=== PATIENT | female | born 1955 ===

== ENCOUNTER 2019-10-26 15:13 | Emergency (ER) | payer MEDICARE, SELFPAY ==
[2019-10-26] VITALS (10 sets, daily range): BP systolic 82–161; BP diastolic 56–99; PULSE 85–114; RESP 14–24; TEMP 36.3–36.6; O2SAT 63–99; BMI 27.4
--- NOTE | 2019-10-26 15:26 | ED_ITS ---
Entered by Roxana Cheema, acting as scribe for Mony Day DO HPI - SOB/Dyspnea General: Chief Complaint: Shortness of Breath/Dyspnea Stated Complaint: SOB, COUGH Time Seen by Provider: 10/26/19 15:25 Source: family Mode of arrival: wheelchair Limitations: no limitations History of Present Illness: HPI Narrative: 64 yo Female presents to ED with complaint of shortness of breath, cough, and decreased responsiveness. Pt just came into town from [place]. Pt's family states that the patient's friend told him that the patient started getting sick 2 days ago. Pt's family states that the patient actually lives in [facility] and is just here visiting her family member. Pt's family member states that the patient was difficult to rouse and had decreased responsiveness. Pt's family states that the patient has a history of asthma but is unaware of any other respiratory issues. Pt's family states that the patient smokes a half pack of cigarettes per day and has a colostomy due to Crohn's Disease. Pt arrived to the ED with an oxygen saturation of 63% on 3 liters O2. MD elicited complaint: shortness of breath and cough Pertinent past history: asthma Onset (ago): day(s) Context: recent illness and recent travel Timing: progressively worsening Associated symptoms: Reports cough; Deny abdominal pain, chest pain, fever(s), nausea or vomiting Treatment prior to arrival: oxygen Related Data: Home oxygen amount: 3 liters Review of Systems General: Reports: 10 or more systems reviewed and unremarkable except in HPI and below Const: Denies: fever, chills or fatigue ENMT: Denies: throat pain Card: Denies: chest pain or swelling of feet/ankles Resp: Reports: shortness of breath and non-productive cough; Denies: productive cough GI: Denies: abdominal pain, nausea, vomiting, diarrhea, constipation or blood in stool Musc: Denies: back pain or extremity swelling Skin/Breast: Denies: rash Neuro: Reports: other (decreased responsiveness); Denies: headache, numbness in extremities or weakness in extremities PFS ED PFSH: Social History Smoking and tobacco status: current every day smoker Physical Exam Const: COMMON NORMALS: apparent distress and negative for oriented x3 EXAM LIMITATIONS: altered mental status GENERAL APPEARANCE: cooperative, in distress and lethargic ORIENTATION/CONSCIOUSNESS: Yes lethargic HENMT: COMMON NORMALS: normocephalic HEAD & SCALP: normal to inspection and normocephalic MOUTH: oral and palatal mucosa normal and lip normal THROAT: posterior oropharynx normal and tonsils normal Neck/C-Spine: COMMON NORMALS: full ROM, no lymphadenopathy, supple and no meningeal signs GENERAL: Yes normal visual inspection and Yes trachea midline Chest: COMMONS NORMALS: inspection of chest normal Resp: COMMON NORMALS: negative for normal respiratory effort and negative for clear to auscultation bilaterally EFFORT & INSPECTION: No able to speak in complete sentences, Yes respiratory distress and Yes uses accessory muscles AUSCULTATION: not clear to auscultation bilaterally, no rales, no rhonchi and wheezes expiratory wheezes and inspiratory wheezes Cardio: COMMON NORMALS: S1 normal heart sound, S2 normal heart sound and no murmurs; negative for regular rate and negative for regular rhythm RATE: abnormal rate and tachycardic RHYTHM: abnormal rhythm and abnormal rhythm HEART SOUNDS: S1 normal and S2 normal PERIPHERAL PULSES: radial pulses present and dorsalis pedis pulses present GI: COMMON NORMALS: normal to inspection, nondistended, normoactive bowel sounds, soft to palpation and non-tender INSPECTION: Yes normal to inspection AUSCULTATION: No normoactive bowel sounds and Yes hypoactive bowel sounds PALPATION: Yes soft, No tender, No guarding and No rigid : BLADDER/KIDNEY EXAM: Yes no CVA tenderness Back/Pelvis: COMMON NORMALS: no CVA tenderness Extremity: COMMON NORMALS: normal to inspection, full ROM, normal capillary refill, no calf tenderness and no pedal edema GENERAL: Yes edema (non-pitting on left leg) Neuro: COMMON NORMALS: CN's II-XII intact bilaterally, moves all extremities and no focal motor deficits; negative for oriented x3 SENSORIUM/ORIENTATION: Yes lethargic MENINGEAL SIGNS: Yes no meningeal signs Skin: COMMON NORMALS: no rashes or lesions noted GENERAL SKIN EXAM: no rashes or lesions noted Procedures Intubation Time out performed: No (clinical urgency) sedative: Etomidate Mg Given: 20 paralytic: Succinylcholine Mg Given: 100 Laryngoscope: fiber optic video scope ET Tube Size: 8 ET Tube Uncuffed: No Tube Secured Depth (cm): 23 Tube Secured Location: teeth Tube Placement Confirmation: visualized tube passing through cords, equal breath sounds bilaterally, no breath sounds over epigastrium and confirmation by capnometry Patient Tolerated Procedure: well and no complications Intubation Complications: none Course Vital Signs: Vital signs: Vital Signs Temperature 97.3 F L 10/26/19 15:35 Pulse Rate 114 H 10/26/19 15:16 Respiratory Rate 24 H 10/26/19 15:16 Blood Pressure 161/99 10/26/19 15:16 Pulse Oximetry 63 L 10/26/19 15:16 MDM - SOB/Dyspnea MDM Narrative: Medical decision making narrative: pt may have had fever in [place], she may have been in contact with covid-19 pts as she was in [place] and [place] and started getting pneumonia like symptoms there, cdc said she doesnt meet criteria for testing but we will send to our private lab in [place] Pts ph was 7.1 so I intubated her 1700: pt has bilat pneumonia, I have started her on levaquin, and fluids as she was hypotenisve for a short period of time, now is 116/87, Dr Pennington at [facility] ([facility] specialist) states he will accept the pt Lab Data: Attestation: I reviewed the patient's lab results. Labs: Lab Results 10/26/19 10/26/19 10/26/19 Range/Units 15:30 15:30 15:30 WBC 22.9 H (4.0-10.0) 10^3/ uL RBC 4.82 (4.1-5.3) 10^6/u L Hgb 13.8 (11.7-16.6) g/dL Hct 45.9 (42.0-52.0) % MCV 95.2 H (80-94) fL MCH 28.6 (28.0-34.0) pg MCHC 30.1 (30.0-36.0) g/dL RDW 14.9 (12.1-15.1) % Plt Count 393 (130-400) 10^3/c mm MPV 10.3 (7.4-10.4) fL Neut % (Auto) 76.3 % Lymph % (Auto) 7.0 % [place] % (Auto) 11.4 % Eos % (Auto) 0.1 % Baso % (Auto) 0.5 % Neut # (Auto) 17.5 H (1.8-7.7) 10^3/u L Lymph # (Auto) 1.6 (0.8-4.8) 10^3/u L [place] # (Auto) 2.6 H (0.2-0.9) 10^3/u L Eos # (Auto) 0.0 (0.0-0.8) 10^3/u L Baso # (Auto) 0.1 (0.0-0.1) 10^3/u L Nucleated RBC % (a uto) 0.1 % Nucleated RBCs # 0.0 /100WBC Sodium 129 L (136-145) mmol/L Potassium 6.0 H (3.5-5.1) mmol/L Chloride 85 L (98-107) mmol/L Carbon Dioxide 32 H (22-29) mmol/L Anion Gap 18.0 (5-19) BUN 18 (8-23) mg/dL Creatinine 0.8 (0.7-1.2) mg/dL GFR Calculation 97.6 (90-130) mL/min Glucose 283 H (65-115) mg/dL Calculated Osmolal ity 275 L (285-295) mOsm/k g Lactate 2.8 H (0.5-2.2) mmol/L Calcium 11.1 H (8.5-10.5) mg/dL Total Bilirubin 0.3 (0.15-1.2) mg/dL AST 20 (0-40) U/L ALT 14 (0-41) U/L Alkaline Phosphata se 122 (40-130) IU/L Total Protein 9.3 H (6.6-8.7) g/dL Albumin 4.2 (3.5-5.2) g/dL Globulin 5.1 H (1.3-4.6) g/dL Urine Color (Yellow) Urine Appearance (CLEAR) Urine pH (5-7) Ur Specific Gravit y (1.005-1.030) Urine Protein (Negative) Urine Glucose (UA) (Normal) Urine Ketones (Negative) Urine Blood (Negative) Urine Nitrate (Negative) Urine Bilirubin (NEGATIVE) Urine Urobilinogen (Negative) mg/dL Ur Leukocyte Marcy ase (Negative) Urine RBC (0-2) /hpf Urine WBC (0-5) /hpf Ur Squamous Epith Cells (0-5) Urine Bacteria (NONE) Hyaline Casts Fine Granular Cast s /lpf Urine Mucus 10/26/19 Range/Units 15:56 WBC (4.0-10.0) 10^3/ uL RBC (4.1-5.3) 10^6/u L Hgb (11.7-16.6) g/dL Hct (42.0-52.0) % MCV (80-94) fL MCH (28.0-34.0) pg MCHC (30.0-36.0) g/dL RDW (12.1-15.1) % Plt Count (130-400) 10^3/c mm MPV (7.4-10.4) fL Neut % (Auto) % Lymph % (Auto) % [place] % (Auto) % Eos % (Auto) % Baso % (Auto) % Neut # (Auto) (1.8-7.7) 10^3/u L Lymph # (Auto) (0.8-4.8) 10^3/u L [place] # (Auto) (0.2-0.9) 10^3/u L Eos # (Auto) (0.0-0.8) 10^3/u L Baso # (Auto) (0.0-0.1) 10^3/u L Nucleated RBC % (a uto) % Nucleated RBCs # /100WBC Sodium (136-145) mmol/L Potassium (3.5-5.1) mmol/L Chloride (98-107) mmol/L Carbon Dioxide (22-29) mmol/L Anion Gap (5-19) BUN (8-23) mg/dL Creatinine (0.7-1.2) mg/dL GFR Calculation (90-130) mL/min Glucose (65-115) mg/dL Calculated Osmolal ity (285-295) mOsm/k g Lactate (0.5-2.2) mmol/L Calcium (8.5-10.5) mg/dL Total Bilirubin (0.15-1.2) mg/dL AST (0-40) U/L ALT (0-41) U/L Alkaline Phosphata se (40-130) IU/L Total Protein (6.6-8.7) g/dL Albumin (3.5-5.2) g/dL Globulin (1.3-4.6) g/dL Urine Color Dark yellow (Yellow) Urine Appearance Cloudy (CLEAR) Urine pH 5 (5-7) Ur Specific Gravit y 1.030 (1.005-1.030) Urine Protein 3+ H (Negative) Urine Glucose (UA) Norm (Normal) Urine Ketones 1+ H (Negative) Urine Blood 2+ H (Negative) Urine Nitrate Negative (Negative) Urine Bilirubin Neg (NEGATIVE) Urine Urobilinogen Norm (Negative) mg/dL Ur Leukocyte Marcy ase Negative (Negative) Urine RBC 0-4 H (0-2) /hpf Urine WBC None (0-5) /hpf Ur Squamous Epith Cells 15-25 H (0-5) Urine Bacteria 1+ H (NONE) Hyaline Casts 15-25 H Fine Granular Cast s 0-4 H /lpf Urine Mucus 1+ Discharge Plan Discharge Patient Disposition: Xfer Short-Term Hosp Clinical Impression: Community acquired pneumonia Qualifiers: Laterality: unspecified laterality Qualified Code(s): J18.9 - Pneumonia, unspecified organism Asthma with exacerbation Qualifiers: Asthma severity: severe Asthma persistence: persistent Qualified Code(s): J45.51 - Severe persistent asthma with (acute) exacerbation Respiratory failure with hypoxia and hypercapnia Qualifiers: Chronicity: acute on chronic Qualified Code(s): J96.21 - Acute and chronic respiratory failure with hypoxia Sepsis Qualifiers: Sepsis type: sepsis due to unspecified organism Sepsis acute organ dysfunction status: with acute organ dysfunction Severe sepsis acute organ dysfunction type: acute respiratory failure Acute respiratory failure type: with hypercapnia Severe sepsis shock status: without septic shock Qualified Code(s): A41.9 - Sepsis, unspecified organism Condition: Stable Coding Level of Care Code ED [employer] for [facility] Fwd Exam Comprehensive The documentation recorded by the Deni watson Carmen, accurately reflects the service I personally performed and the decisions made by Barb natarajan Sonia M DO
[2019-10-26] MEDS: naloxone 0.4 mg/ml SDV 0.8 MG (15:34)
--- NOTE | 2019-10-26 15:38 | XRR_ITS ---
PROCEDURE INFORMATION: Exam: XR Chest, 1 View Exam date and time: 10/26/2019 4:08 PM Age: 64 years old Clinical indication: Shortness of breath; Patient HX: Post intubation, limited HX due to PT condition; Additional info: Pneumonia TECHNIQUE: Imaging protocol: XR of the chest Views: Frontal portable semiupright view of the chest. COMPARISON: No relevant prior studies available. FINDINGS: Tubes, catheters and devices: The endotracheal tube tip is approximately 7.5 cm above the kajal. EKG leads are present overlying the chest. Lungs: Bilateral midlung zone and bibasilar pulmonary subsegmental atelectasis. Pleural space: No pleural effusion. No pneumothorax. Heart/Mediastinum: Mild cardiomegaly. Vasculature: Mild aortic arch atherosclerotic calcification without ectasia. Bones/joints: No acute abnormality identified. XR/XR chest 1V portable [id number] IMPRESSION: Bilateral midlung zone and bibasilar pulmonary subsegmental atelectasis.
--- NOTE | 2019-10-26 15:38 | ECG_ITS ---
Measurements Intervals Russell Rate: 109 P: 66 CT: 152 QRS: 76 QRSD: 117 T: 23 QT: 342 QTc: 461 SINUS TACHYCARDIA POSSIBLE LEFT ATRIAL ENLARGEMENT [-0.1mV P WAVE IN V1/V2] INCOMPLETE RIGHT BUNDLE BRANCH BLOCK [90+ ms QRS DURATION, TERMINAL R IN V1/V2, 40+ ms S IN I/aVL/V4/V5/V6] MODERATE T-WAVE ABNORMALITY, CONSIDER ANTERIOR ISCHEMIA [-0.1+ mV T WAVE IN V3 V3/V4] No previous ECG available for comparison Electronically Signed On 10-26-2019 20:32:51 CDT by Elizabeth Aden M.D. [email or web address]
[2019-10-26] MEDS: succinylcholine 20 mg/mL SDV 10mL 100 MG IVP (15:50)
[2019-10-26 15:53] LABS: Basophils # 0.1 10^3/uL (0.0-0.1); Basophils % 0.5 %; Eosinophils % 0.1 %; Hematocrit 45.9 % (42.0-52.0); Hemoglobin 13.8 g/dL (11.7-16.6); Lymphocytes # 1.6 10^3/uL (0.8-4.8); Mean Corpuscular HGB Conc 30.1 g/dL (30.0-36.0); Mean Corpuscular Hemoglobin 28.6 pg (28.0-34.0); Mean Corpuscular Volume 95.2 fL (80-94); Mean Platelet Volume 10.3 fL (7.4-10.4); Monocytes # 2.6 10^3/uL (0.2-0.9); Monocytes % 11.4 %; Neutrophils # 17.5 10^3/uL (1.8-7.7); Neutrophils % 76.3 %; Nucleated Red Blood Cells % 0.1 %; Platelet Count 393 10^3/cmm (130-400); Red Blood Count 4.82 10^6/uL (4.1-5.3); Red Cell Distribution Width 14.9 % (12.1-15.1); White Blood Count 22.9 10^3/uL (4.0-10.0)
[2019-10-26 16:00] LABS: Alanine Aminotransferase 14 U/L (0-41); Albumin Level 4.2 g/dL (3.5-5.2); Alkaline Phosphatase 122 IU/L (40-130); Aspartate Amino Transferase 20 U/L (0-40); Blood Urea Nitrogen 18 mg/dL (8-23); Calcium 11.1 mg/dL (8.5-10.5); Carbon Dioxide 32 mmol/L (22-29); Chloride 85 mmol/L (98-107); Globulin 5.1 g/dL (1.3-4.6); Glomerular Filtration Rate 97.6 mL/min (90-130); Glucose 283 mg/dL (65-115); Osmolality Calculated 275 mOsm/kg (285-295); Sodium 129 mmol/L (136-145); Total Bilirubin 0.3 mg/dL (0.15-1.2); Total Protein 9.3 g/dL (6.6-8.7)
[2019-10-26 16:01] LABS: Lactate (Lactic Acid level) 2.8 mmol/L (0.5-2.2)
[2019-10-26 16:11] LABS: Add Urine Microscopic? YES; Bilirubin Urine Neg (NEGATIVE); Blood Urine 2+ (Negative); Glucose Urine UA Norm (Normal); Ketones Urine 1+ (Negative); Leukocyte Esterase Urine Negative (Negative); Nitrate Urine Negative (Negative); Protein Urine 3+ (Negative); Urine Appearance Cloudy (CLEAR); Urine Color Dark Yellow (Yellow); Urobilinogen Urine Norm (Negative); pH Urine 5 (5-7)
[2019-10-26 16:18] LABS: Bacteria Urine 1+; Fine Granular Casts Urine 0-4 /lpf; Hyaline Casts Urine 15-25; Mucus Urine 1+; RBC Urine 0-4 /hpf (0-2); Squamous Epithelial Cell Urine 15-25 (0-5)
[2019-10-26 16:19] LABS: Add Urine Culture? No
[2019-10-26] MEDS: sodium chloride 0.9% 1,000 ML 999 ML IV (16:21)
[2019-10-26] MEDS: propofol 1,000 MG/100 ML INJ 6 MG (16:25)
[2019-10-26 16:59] LABS: Influenza A by IFA Negative (Negative)
[2019-10-26 17:01] LABS: Influenza B by IFA Negative (Negative)
[2019-10-26] MEDS: ipratropium 0.5 mg/2.5 mL Neb 0.25 MG INHALATION (17:31)
[2019-10-26] MEDS: levofloxacin-dextrose 5 % 750 MG/150 ML PREMIX 150 MG IV (17:55)
[2019-10-26 18:13] LABS: Alveolar-Arterial Oxygen Gradi 506.9 mmHg (5-10); Arterial Blood Gas Hematocrit 43.1 % (37-47); Base Excess ABG 1.5 mmol/L (-2.0-2.0); Blood Gas Allen Test Pos; Blood Gas Sample Site Radial, left; Blood Gas Sample Type Arterial; Carboxyhemoglobin 4.3 %THgb (0.4-20.1); HCO3 ABG 33.4 mmol/L (22-26); Ionized Calcium Level - ABG 1.3 mmol/L (1.1-1.4); Methemoglobin 0.1 % (0.4-1.5); Oxygen Device NRB; Oxygen Saturation ABG 94.2; PO2 ABG 88.2 mmHg (80.0-100.0); Potassium Level - ABG 5.6 mmol/L (3.5-5.0)
[2019-10-26 18:14] LABS: ABG PH Result 7.31 (7.35-7.45); Arterial Blood Gas Hematocrit 42.3 % (37-47); Base Excess ABG 3.7 mmol/L (-2.0-2.0); Blood Gas Allen Test Pos; Blood Gas Sample Site Radial, left; Blood Gas Sample Type Arterial; Blood Gas Tidal Volume 0.45; HCO3 ABG 31.7 mmol/L (22-26); Oxygen Device VENT
[2019-10-26 18:16] LABS: ABG PCO2 62.7 mmHg (35-45)
[2019-10-26 18:16] LABS: ABG PCO2 94.4 mmHg (35-45); ABG PH Result 7.16 (7.35-7.45)
--- NOTE | 2019-10-26 20:10 | PC.NURSE ---
Ems crew here, report given and assisted loading Patient on stretcher for transfer to [facility].
--- NOTE | 2019-10-26 20:14 | PC.NURSE ---
Notified family that patient was being transfered, spoke with Maciel patients son. Maciel would like us to send her personal belongings with her and he will pick them up there.
[2019-10-27 13:45] LABS: Glucose Point of Care 290 mg/dL (70-110)
[2019-10-30 11:41] LABS: Coronavirus Lab Test PTC NOT DETECTED
== END 2019-10-26 20:43 | disposition short-term general hospital (02) ==
PROVIDERS: Emergency Provider Emergency Medicine
DX: A41.9 Sepsis, unspecified organism (principal); J18.9 Pneumonia, unspecified organism; J45.51 Severe persistent asthma with (acute) exacerbation; J96.21 Acute and chronic respiratory failure with hypoxia; F17.210 Nicotine dependence, cigarettes, uncomplicated; Z93.3 Colostomy status
CPT/HCPCS: 12345; 31500; 36415; 36416; 36600; 51702; 71045; 80051; 80053; 81001; 82803; 82810; 82962; 83605; 83986; 85025; 87040; 87635; 87804; 93005; 94002; 94640; 94799; 96365; 96374; 96375; 99284; 99291; J0330; J1956; J2310; J2704; J3490; J7030; J7611; J7644